=== PATIENT | female | born 1945 | race Caucasian/White ===

== ENCOUNTER 2023-04-15 08:23 | Day surgery (SDC) | payer MEDICARE, BC, SELFPAY ==
[2023-03-18 11:36] VITALS: BMI 31.4
--- NOTE | 2023-03-20 16:54 | W.PN.UPDATE ---
Update Note
Progress Note Update
CT Chest 03/18/2023--abnormal findings concerning for sarcoid
or metastases due to malignancy.
Contacted patient. Attempted to contact PCP-Dr. Shamar Rwoe [phone]--office currently closed and will fax 03/23/23.
[2023-04-15] VITALS (13 sets, daily range): BP systolic 101–139; BP diastolic 45–76
[2023-04-15] MEDS: NSS 500 IV (09:30)
[2023-04-15 12:01] LABS: ACT-LR - POC 265 Seconds (116-155)
[2023-04-15 12:20] LABS: ACT-LR - POC 294 Seconds (116-155)
[2023-04-15 12:41] LABS: ACT-LR - POC 310 Seconds (116-155)
[2023-04-15 13:04] LABS: ACT-LR - POC 369 Seconds (116-155)
--- NOTE | 2023-04-15 14:05 | ITS.CL.ABL ---
[employer] - Ablation
Ablation
Procedure Report:
ELECTROPHYSIOLOGY ABLATION STUDY
DATE:: April 15, 2023 REFERRING: Dr. Jovani Martinez
INDICATION: Persistent supraventricular tachycardia in the form of atrial fibrillation. As above
HISTORY: See H and P. 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 We also discussed slow infusion and warming of saline it or blood if needed for rapid
infusion.
ANTIARRHYTHMIC DRUG: History of class I and class III antiarrhythmic drug therapy opted for pulmonary vein isolation
PRE-PROCEDURE SUJATHA: No intracardiac thrombus
PRESENTING RHYTHM: Atrial fibrillation
'TIME-OUT': called and confirmed.
SEDATION/ANESTHESIA: provided via the anesthesia department using general anesthesia (LMA).
INTRAVENOUS/ARTERIAL ACCESS:
Right femoral venous -8Fr
Left femoral venous - 8 Fr, 6 Fr
The patient's venous access sites were closed with a Vascade closure device at each access
Ultrasound guidance for bilateral femoral vein access was utilized by me to obtain access with demonstration of normal anatomy
CHADS-VASC Score:
HAS-Bled Score
PROCEDURE:
1. A decapolar CS catheter was placed within the CS for mapping and pacing. This was also used as the reference catheter for the 3-D map.
2. The intracardiac ultrasound catheter was positioned in the RA to identify the FO for targeting of transseptal puncture, assist in identification of the pulmonary vein ostia, monitoring pre and post ablation pulmonary vein flow velocities,
monitoring for 'bubble' formation during RF application as a sign of thermal injury, and to monitor for pericardial effusion during mapping and ablation procedure. Left atrial size, LV ejection fraction, and pulmonary vein flows were monitored
pre and post ablation procedure. The other valves were inspected and found to be free of significant regurgitation or stenosis. There was a small effusion at baseline in the pericardial space which was unchanged at the end of the procedure.
3. Half of the calculated heparin bolus was administered prior to the first transeptal puncture. Transseptal puncture was performed to diagnose RA and LA pressure so that safety of LA mapping and ablation could be further assessed, and to access
the left atrium and pulmonary veins for mapping and ablation. This entailed advancing an 10 [place]ian steerable sheath with dilator into the superior vena cava and withdrawing both (monitoring intracardiac ultrasound, fluoroscopy and tip pressure)
with the tip oriented toward the atrial septum. The fossa ovalis was engaged (indicated by sudden displacement of the sheath tip as well as tenting of the fossa seen on intracardiac ultrasound). Left atrial access required a pass with the
B[place]rough needle extended. Left atrial catheter position was confirmed by pressure monitoring (RA mean pressure 8 mm Hg and LA mean presure 14 mm Hg), LA saturation (99%), as well as fluoroscopy. The sheath was advanced over the dilator and
positioned in the left atrium. This procedure was repeated for the Agilis sheath. The remainder of the calculated heparin bolus was administered and heparin was
infused to maintain ACT at 300 -350 seconds throughout the case.
4. RA pacing was performed via the proximal decapolar poles and LA pacing was performed via the distal decapolr poles.
5. A quadrapolar catheter was first positioned at the His position for His Bundle recording which was tagged via the 3-D Navex sytem, and then passed to the RVA for RV pacing and recording.
6. The multipolar catheter and 4 mm tactic catheter placed in each of the LIPV, LSPV, RSPV and the RIPV.
7. Next, a 3-D map was created using Navex. A 3-D reconstructed CT image was compared to the 3-D Navex map to assist in anatomic interpretation, mapping and ablation. The CT image and the NavX image were fused.
8. Pulmonary vein and extrapulmonary vein lesions were given. [place] ablations performed around the left and right veins isolating the right superior and inferior left inferior pulmonary veins with persistent connection at the roof and
anterior calvin of the left superior pulmonary vein. Extrapulmonary vein lesions were given isolating the posterior wall of the left atrium from the mid calvin's towards the floor of the left atrium. Electrical signs in the left atrial posterior
wall was noted. Patient was then cardioverted to sinus rhythm with repetitive firing and recurrence of atrial fibrillation from a small potential at the anterior roof and anterior calvin of the left superior pulmonary vein. Dense ablation at 30 W,
42 degrees, 32nd lesions with 10 to 15 g force in the roof and deep anterior calvin brought about durable isolation of left superior pulmonary vein and no further recurrence of atrial fibrillation after the final cardioversion. Once back in sinus
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 No heating of the esophagus above 1 �C was noted and with any heating of the esophagus we move the catheter to
another position. There is no loss of phrenic nerve and pacing at the anterior ridge of the right superior and right inferior pulmonary veins was performed prior to ablation.
9. Normal sinus node and AV angelo function was noted. There was scarring of the posterior atrium noted at baseline below the left inferior pulmonary vein and at the posterior wall outside the right pulmonary veins. These areas of scarring plus
baseline small effusion would suggest possibly a viral or other myopathy process at baseline.
TOTAL FLOURO TIME: 21.3 minutes 147 mGy
TOTAL RF DURATION: 24 minutes
REVERSAL OF HEPARIN: 40 mg of protamine, slow IV administration
COMPLICATIONS:
None
Intracardiac US shows no pericardial effusion post ablation.
SUMMARY:
Complex left atrial mapping and ablation.
Will discontinue diltiazem and add back amiodarone 200 mg daily for rhythm control in the first 3 months with discontinuation in 3 to 6 months. Adding this due to the baseline electroanatomic voltage abnormalities and dense ablation both in the
pulmonary veins and the left atrial posterior wall.
RECOMMENDATIONS:
1. Admit to monitored bed.
2. Resume anticoagulation
3. Discontinue diltiazem and add amiodarone for 3 to 6 months at low-dose
4. Out of bed to hours and consider same-day discharge
Copy to: Dr. Jovani Martinez
[2023-04-15] MEDS: LASIX 40 MG IV (15:44)
== END 2023-04-15 16:45 | disposition home or self-care (01) ==
LOC: CATH 08:23
PROVIDERS: ATTENDING PHYSICIAN Internal Medicine Cardiovascular Disease
DX: I48.19 Other persistent atrial fibrillation (principal); I11.0 Hypertensive heart disease with heart failure; I50.32 Chronic diastolic (congestive) heart failure; E78.5 Hyperlipidemia, unspecified; E66.9 Obesity, unspecified; Z68.31 Body mass index [BMI] 31.0-31.9, adult; K21.9 Gastro-esophageal reflux disease without esophagitis; E03.9 Hypothyroidism, unspecified; I10 Essential (primary) hypertension; C88.0 Waldenstrom macroglobulinemia; Z79.01 Long term (current) use of anticoagulants; D59.12 Cold autoimmune hemolytic anemia
CPT/HCPCS: C1732; C1730; C1766; C2630; C1892 ×2; C1759; C1894; 76937; 85347; 86900; 86901; 93005; 93656; C1760